=== PATIENT | male | born 1930 | race Caucasian/White ===

== ENCOUNTER 2016-05-17 05:14 | Emergency (ER) | payer MEDICARE, BC ==
[~2016-05-17] VITALS: Ht 162.6 cm; Wt 56.8 kg
[~2016-05-17 05:14] MED LIST: ADVICOR; ADVICOR OR; ALLOPURINOL100 MG PO; ASPIRIN LOW DOS81 M1 PO; BAYER LOW DOSE81 MG PO; BICALUTAMIDE50 MG PO; CIPROFLOXACN500 MG PO; DIGOXIN0.25 MG PO; FISH OIL1000 MG PO; FOLIC ACID1 MG OR; FOLIC ACID400 MC1 OR; INDAPAMIDE2.5 MG OR; INDAPAMIDE2.5 MG PO; INDOCIN25 MG OR; KLOR-CON M1010 MEQ PO; LO-DOSE ASA81 MG OR; LOVASTATIN40 M1 PO; MAG6464 MG PO; METFORMIN500 M1 PO; METFORMIN500 MG PO; NIACIN ER1000 MG PO; ZETIA10 MG OR; ZETIA10 MG PO; ZITHROMAX250 MG PO
[2016-05-17] MEDS ORDERED: PERCOCET 5/325M1 TAB PO (06:47)
[2016-05-17] MEDS ORDERED: GNP OMEPRAZOLE20 MG PO (06:52)
[2016-05-17] MEDS ORDERED: LASIX 20 MG20 MG/TAB PO (06:53)
[2016-05-17] MEDS ORDERED: XTANDI40 MG PO (06:53)
[2016-05-17 07:15] VITALS: BP 160/72
== END 2016-05-17 07:16 | disposition home or self-care (01) ==
LOC: ED 05:14
PROC: 0T2BX0Z Change Drainage Device in Bladder, External Approach (ICD-10-PCS; principal; 2016-05-17)
DX: R33.9 Retention of urine, unspecified (principal); R31.9 Hematuria, unspecified; E11.9 Type 2 diabetes mellitus without complications; I10 Essential (primary) hypertension; E78.5 Hyperlipidemia, unspecified; C61 Malignant neoplasm of prostate; Z95.0 Presence of cardiac pacemaker